=== PATIENT | female | born 1965 | race African-American/Black ===

== ENCOUNTER 2024-01-06 01:41 | Inpatient (IN) | payer BC ==
[~2024-01-06] VITALS: Ht 162.6 cm; Wt 99.8 kg
[2024-01-06] MEDS: NITROGLYCERIN 0.4MG TABLET SL SL ONE (02:30)
[2024-01-06 02:39] LABS: BASOPHILS % 0.3 % (0.0-2.0); EOSINOPHILS % 2.6 % (0.0-5.0); HEMATOCRIT. 39.8 % (36.0-48.0); HEMOGLOBIN. 13.4 g/dL (12.0-16.0); LYMPHOCYTES % 24.1 % (20.0-50.0); MEAN CORPUSCULAR HEMOGLOBIN 31.3 pg (28.0-32.0); MEAN CORPUSCULAR HGB CONC 33.7 g/dL (31.0-37.0); MEAN CORPUSCULAR VOLUME 92.8 fL (81.0-99.0); MEAN PLATELET VOLUME 8.1 fl (7.4-10.4); PLATELET 271 x1000/uL (130-400); RED BLOOD CELL COUNT 4.29 mill/uL (4.2-5.4); RED CELL DISTRIBUTION WIDTH 13.5 % (11.6-14.6); WHITE BLOOD COUNT 8.5 x1000/uL (4.5-11.0)
[2024-01-06] MEDS: ONDANSETRON HCL 4MG/2ML INJ IV ONE (02:45)
[2024-01-06 02:50] LABS: CHLORIDE 105 mEq/L (98-107); POTASSIUM 3.8 mEq/L (3.5-5.1); SODIUM 139 mEq/L (136-145)
[2024-01-06 02:51] LABS: CALCIUM 9.4 mg/dL (8.7-10.4); CARBON DIOXIDE 26 mEq/L (21-32)
[2024-01-06 02:56] LABS: CREATININE 0.9 mg/dL (0.6-1.0); GLUCOSE 311 mg/dL (70-105); UREA NITROGEN BLOOD 17 mg/dL (9-23)
[2024-01-06 02:58] LABS: ALANINE AMINOTRANSFERASE 17 IU/L (10-49); ALBUMIN 4.4 g/dL (3.2-4.8); ASPARTATE AMINOTRANSFERASE 13 IU/L (<34); BILIRUBIN TOTAL 0.4 mg/dL (0.1-1.0); PROTEIN TOTAL 6.9 g/dL (6.0-8.3)
[2024-01-06 02:59] LABS: TROPONIN I HIGH SENSITIVITY < 4 ng/L (3.0-34)
[2024-01-06 03:00] LABS: D-DIMER 3.01 mg/L FEU (<0.50); INR 0.9; PROTHROMBIN TIME 10.6 sec (9.6-11.0)
[2024-01-06] MEDS: MORPHINE SULFATE 4 MG/ML INJ (FOR IV/IM USE) IV ONE (03:23)
[2024-01-06] MEDS: IOHEXOL-350 100 ML BOTTLE ONE (05:12)
[2024-01-06] MEDS ORDERED: CLONIDINE 0.1MG TABLET PO PRN (05:15)
[2024-01-06] MEDS ORDERED: MAGNESIUM/ALUMINUM HYDROXIDE/SIMETHICONE 30ML UDC PO PRN (05:15)
[2024-01-06] MEDS ORDERED: DEXTROSE 50% WATER 50ML SYRINGE IV PRN (05:15)
[2024-01-06] MEDS ORDERED: DOCUSATE SODIUM 100MG CAPSULE PO PRN (05:15)
[2024-01-06 05:35] LABS: HEMOGLOBIN 12.9 g/dL (12.0-16.0); MEAN CORPUSCULAR HEMOGLOBIN 31.7 pg (28.0-32.0); MEAN CORPUSCULAR VOLUME 93.3 fL (81.0-99.0); PLATELET 232 x1000/uL (130-400); RED BLOOD CELL COUNT 4.08 mill/uL (4.2-5.4); RED CELL DISTRIBUTION WIDTH 13.1 % (11.6-14.6); WHITE BLOOD COUNT 8.1 x1000/uL (4.5-11.0)
[2024-01-06 05:43] LABS: BG BASE EXCESS -3.2 mmol/L (-2.0-2.0); BG CARBOXYHEMOGLOBIN 0.6 % (0.5-1.5); BG DEOXYHEMOGLOBIN 2.2 % (0.0-5.0); BG HCO3 ACT 20.1 mmol/L (22.0-26.0); BG OXYGEN SATURATION 97.8 % (92.0-98.5); BG OXYHEMOGLOBIN 97.2 % (94.0-97.0); BG PCO2 30.8 mmHg (35.0-45.0); BG PH 7.432 (7.350-7.450); BG TOTAL HEMOGLOBIN 13.2 g/dL (12.0-18.0)
[2024-01-06 05:49] LABS: CHLORIDE 107 mEq/L (98-107); SODIUM 137 mEq/L (136-145)
[2024-01-06 05:50] LABS: CALCIUM 9.1 mg/dL (8.7-10.4); CARBON DIOXIDE 24 mEq/L (21-32)
[2024-01-06 05:55] LABS: CREATININE 0.8 mg/dL (0.6-1.0); GLUCOSE 322 mg/dL (70-105); TRIGLYCERIDE 122 mg/dL (0-150); UREA NITROGEN BLOOD 16 mg/dL (9-23)
[2024-01-06 05:56] LABS: CREATINE KINASE MB FRACTION < 0.5 ng/mL (0.5-3.6); LDL CHOLESTEROL 38 mg/dL (5-100)
[2024-01-06 05:57] LABS: ALANINE AMINOTRANSFERASE 17 IU/L (10-49); ALBUMIN 4.4 g/dL (3.2-4.8); ASPARTATE AMINOTRANSFERASE 14 IU/L (<34); BILIRUBIN TOTAL 0.4 mg/dL (0.1-1.0); CHOLESTEROL 109 mg/dL (<200); HDL CHOLESTEROL 34 mg/dL (>65); PROTEIN TOTAL 6.6 g/dL (6.0-8.3)
[2024-01-06 06:11] LABS: TROPONIN I HIGH SENSITIVITY < 4 ng/L (3.0-34)
[2024-01-06] MEDS: BLOOD SUGAR DIAGNOSTIC STRIP TEST SCH (08:15)
[2024-01-06] MEDS: INSULIN LISPRO 100 UNITS/ML SUBCUT SCH ×2 (08:24→09:00)
[2024-01-06 09:25] LABS: PHOSPHORUS 3.4 mg/dL (2.5-4.9)
[2024-01-06 09:28] LABS: T4 FREE 1.15 ng/dL (0.89-1.76); THYROID STIMULATING HORMONE 0.11 uIU/mL (0.55-4.78)
[2024-01-06] MEDS: INSULIN GLARGINE 100 UNITS/ML SUBCUT SCH (10:12)
[2024-01-06] MEDS: ONDANSETRON HCL 4MG/2ML INJ IV PRN (11:48)
[2024-01-06] MEDS: ACETAMINOPHEN 325MG TABLET PO PRN ×2 (12:59→20:23)
[2024-01-06 17:47] LABS: CREATINE KINASE MB FRACTION < 0.5 ng/mL (0.5-3.6)
[2024-01-06 17:49] LABS: TROPONIN I HIGH SENSITIVITY < 4 ng/L (3.0-34)
[2024-01-06] MEDS ORDERED: ATOR20TA65 PO (18:35)
[2024-01-06] MEDS ORDERED: LOSA1TAB40 PO (18:35)
[2024-01-06] MEDS ORDERED: METF-907 PO (18:35)
[2024-01-06 19:43] VITALS: BP 146/86; PULSE 124; RESP 20; TEMP 96.8
[2024-01-06] MEDS: MAGNESIUM 2 G PREMIX 50 ML IV NR (20:22)
[2024-01-06] MEDS: ATORVASTATIN CALCIUM 20MG TABLET PO SCH (20:23)
[2024-01-06] MEDS: KETOROLAC 15MG/ML VIAL IV PRN (20:23)
[2024-01-06 20:40] VITALS: BP 142/88; PULSE 118; RESP 20; TEMP 99.9
[2024-01-07] VITALS (7 sets, daily range): BP systolic 106–130; BP diastolic 69–82; PULSE 110–138; RESP 18–24; TEMP 97.3–100.4
[2024-01-07 06:36] LABS: HEMATOCRIT 37.5 % (36.0-48.0); HEMOGLOBIN 12.7 g/dL (12.0-16.0); MEAN CORPUSCULAR HEMOGLOBIN 31.5 pg (28.0-32.0); MEAN CORPUSCULAR VOLUME 92.8 fL (81.0-99.0); PLATELET 228 x1000/uL (130-400); RED BLOOD CELL COUNT 4.04 mill/uL (4.2-5.4); RED CELL DISTRIBUTION WIDTH 13.4 % (11.6-14.6); WHITE BLOOD COUNT 11.4 x1000/uL (4.5-11.0)
[2024-01-07 06:52] LABS: CARBON DIOXIDE 24 mEq/L (21-32); CHLORIDE 103 mEq/L (98-107); POTASSIUM 3.8 mEq/L (3.5-5.1); SODIUM 138 mEq/L (136-145)
[2024-01-07 06:53] LABS: CALCIUM 9.3 mg/dL (8.7-10.4)
[2024-01-07 06:57] LABS: CREATININE 0.8 mg/dL (0.6-1.0); GLUCOSE 182 mg/dL (70-105)
[2024-01-07 06:58] LABS: UREA NITROGEN BLOOD 17 mg/dL (9-23)
[2024-01-07] MEDS: METOPROLOL TARTRATE 50MG TABLET PO SCH (09:06)
[2024-01-07] MEDS: ENOXAPARIN 30MG/0.3ML SYR SUBCUT SCH (09:07)
[2024-01-07] MEDS: IPRATROPIUM/ALBUTEROL 0.5-3(2.5)MG/3ML NEB HHN PRN (17:20)
[2024-01-07] MEDS: FAMOTIDINE 20MG TABLET PO SCH (20:49)
[2024-01-07 22:27] LABS: CLARITY URINE CLOUDY (CLEAR); COLOR URINE YELLOW (YELLOW); GLUCOSE URINE 3+ (NEGATIVE); KETONES URINE 1+ (NEGATIVE); LEUKOCYTE ESTERASE URINE NEGATIVE (NEGATIVE); NITRITE URINE NEGATIVE (NEGATIVE); OCCULT BLOOD URINE NEGATIVE (NEGATIVE); PH URINE 5.5 (4.5-8.0); PROTEIN URINE 2+ (NEGATIVE); SPECIFIC GRAVITY URINE 1.037 (1.005-1.030); UROBILINOGEN URINE 0.2 E.U./dL (0.2-1.0)
[2024-01-07 22:56] LABS: BACTERIA URINE 4+; RBC URINE 0-2 /hpf (0-2); SQUAMOUS EPITHELIAL CELL URINE 2+ /lpf (RARE/1+)
[2024-01-08] VITALS (7 sets, daily range): BP systolic 101–145; BP diastolic 55–80; PULSE 102–120; RESP 16–20; TEMP 98.1–101.3; O2SAT 96–98
[2024-01-08] MEDS ORDERED: CEFTRIAXONE 500 MG in DEXTROSE 5% WATER 50 ML IV SCH (08:00)
[2024-01-08] MEDS: ASPIRIN 81MG TABLET PO SCH (08:28)
[2024-01-08] MEDS: CEFTRIAXONE 1GM/50ML 50ML IV SCH (09:21)
[2024-01-08] MEDS ORDERED: METO-539 PO (10:14)
[2024-01-08] MEDS ORDERED: NITR-87 MT (10:19)
[2024-01-08] MEDS ORDERED: ASPI-1160 PO (10:19)
[2024-01-08] MEDS: INSULIN LISPRO 100 UNITS/ML SUBCUT NR (12:29)
[2024-01-08] MEDS ORDERED: SULF1TAB48 MT (15:29)
[2024-01-08] MEDS ORDERED: PROPRANOLOL HCL 10MG TABLET PO SCH (21:00)
== END 2024-01-08 16:55 | disposition home or self-care (01) | DRG 311 ==
LOC: ER 01:41 → 5WST 03:33 → 7WST 17:01
PROVIDERS: ADMIT Internal Medicine; ATTEND Internal Medicine
DX: I24.9 Acute ischemic heart disease, unspecified (principal); J96.01 Acute respiratory failure with hypoxia; J90 Pleural effusion, not elsewhere classified; E78.5 Hyperlipidemia, unspecified; I11.9 Hypertensive heart disease without heart failure; E11.65 Type 2 diabetes mellitus with hyperglycemia; E05.20 Thyrotoxicosis with toxic multinodular goiter without thyrotoxic crisis or storm; E27.8 Other specified disorders of adrenal gland; E66.9 Obesity, unspecified; R79.89 Other specified abnormal findings of blood chemistry; E83.42 Hypomagnesemia; F17.200 Nicotine dependence, unspecified, uncomplicated; Z79.4 Long term (current) use of insulin; Z79.84 Long term (current) use of oral hypoglycemic drugs; Z79.899 Other long term (current) drug therapy; Z82.49 Family history of ischemic heart disease and other diseases of the circulatory system; Z68.37 Body mass index [BMI] 37.0-37.9, adult
CPT/HCPCS: 36415; 36600; 71045; 71275; 76536; 80048; 80053; 80061; 81003; 82375; 82553; 82805; 82962; 83036; 83520; 83605; 83735; 83880; 84100; 84145; 84439; 84443; 84480; 84481; 84484; 85025; 85027; 85379; 86376; 87077; 87186; 93005; 93306; 93970; 94640; 99285; J0696; J1650; J1815; J1885; J2270; J2405; J3475; Q9967